=== PATIENT | male | born 1970 | race Caucasian/White ===

== ENCOUNTER 2020-02-12 17:23 | Emergency (ER) | payer SELFPAY ==
[~2020-02-12] VITALS: Ht 198.1 cm; Wt 118.2 kg
[~2020-02-12 17:23] MED LIST: BENZ1TAB7 PO; LEVO750T21 PO; LURA80TA3 PO; NICO-687 TD; THI100T PO; TRAZ-256 PO
[2020-02-12 17:29] VITALS: BP 147/96
== END 2020-02-12 17:45 ==
LOC: ER 17:24 → EDBD 17:24 → MERGE 17:24 → ER 17:45
DX: F10.129 Alcohol abuse with intoxication, unspecified (principal); I10 Essential (primary) hypertension; Z72.89 Other problems related to lifestyle; Y90.9 Presence of alcohol in blood, level not specified
CPT/HCPCS: 99284